=== PATIENT | female | born 1965 | race African-American/Black ===

== ENCOUNTER 2017-04-29 02:01 | Emergency (ER) | payer BC ==
[~2017-04-29] VITALS: Ht 152.4 cm; Wt 70.0 kg
[~2017-04-29 02:01] MED LIST: CYCL5TAB PO; LORTA5 PO; LOSA50TA PO
[2017-04-29 02:04] VITALS: BP 139/86; PULSE 113; RESP 14; TEMP 100.6; O2SAT 96
--- NOTE | 2017-04-29 03:12 | PD ---
HPI Chief Complaint: Cold / Flu Symptoms Time Seen by Provider: 03:02 Travel History International Travel<30 days: No Contact w/Intl Traveler<30days: No History of Present Illness HPI 52-year-old black female presents to emergency department with complaints of flulike symptoms for the past 2 days. She has had fever and chills, right earache, congestion, slight cough, myalgias, arthralgias and general malaise. She denies any shortness of breath or wheezing. No nausea vomiting. No abdominal pain or diarrhea. No dysuria or frequency. No rashes or lesions. Symptoms are moderate. No alleviating factors. Worsened by coughing and malaise. Patient has not taken anything for fever the last 12 hours. PFSH Past Medical History Narrative Medical History of hypertension and hypercholesterolemia. 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) Cardiovascular Problems: Yes High Cholesterol: Yes Chemotherapy: No Chest Pain: Yes Congestive Heart Failure: No COPD: No Cerebrovascular Accident: No Diabetes: No Diminished Hearing: No Endocrine: No GERD: No Glaucoma: No Genitourinary: No Headaches: No Hepatitis: No Hiatal Hernia: No Hypertension: Yes Kidney Stones: No Musculoskeletal: No Neurologic: No Respiratory: No Immunizations Current: Yes Myocardial Infarction: No Radiation Therapy: No Renal Failure: No Seizures: No Sickle Cell Disease: No Sleep Apnea: No Thyroid Disease: No Ulcer: No Tetanus Vaccination: < 5 Years ?: Not Past Surgical History Abdominal Surgery: No AICD: No Cardiac Surgery: No Ear Surgery: No Endocrine Surgery: No Eye Surgery: No Genitourinary Surgery: No Gynecologic Surgery: Yes (HYSTERECTOMY) Hysterectomy: Yes (TOTAL) Oral Surgery: No Thoracic Surgery: No Social History Alcohol Use: No Tobacco Use: No Substance Use: No Allergies-Medications (Allergen,Severity, Reaction): Coded Allergies: Sulfa (Sulfonamide Antibiotics) (Verified Allergy, Unknown, 04/29/17) Reported Meds & Prescriptions Reported Meds & Active Scripts Active Hydrocodone/Acetaminophen 5 mg/325 mg 1 Tab 1 Tab PO Q6H PRN Reported Losartan Potassium 50 MG (Losartan Potassium) 50 Mg Tab 50 Mg PO DAILY Flexeril (Cyclobenzaprine HCl) 5 Mg Tab 5 Mg PO BID UNKNOWN DOSE Review of Systems Except as stated in HPI: all other systems reviewed are Neg Physical Exam Narrative GENERAL: Well-developed, well-nourished in no acute distress. Nontoxic appearing. HEAD: Normocephalic, atraumatic. EYES: Pupils equal round and reactive. Extraocular motions intact. No scleral icterus. No injection or drainage. ENT: TMs clear without erythema. The external auditory canals clear. Nose: clear . Posterior pharynx is pink and moist. No tonsillar edema or exudate. Uvula midline. Airway patent. NECK: Trachea midline.Supple, nontender, moves head freely. No central bony tenderness or spasm. CARDIOVASCULAR: Regular tachycardic rate and rhythm without murmurs, gallops, or rubs. RESPIRATORY: Clear to auscultation. Breath sounds equal bilaterally. No wheezes , rales, or rhonchi. GASTROINTESTINAL: Abdomen soft, non-tender, nondistended. No hepato-splenomegaly , or palpable masses. No guarding. EXTREMITIES: No clubbing, cyanosis, or edema. No joint tenderness, effusion, or edema noted. BACK: Nontender without deformity or crepitance. No flank tenderness. Data Data Last Documented VS Vital Signs Date Time Temp Pulse Resp B/P (MAP) Pulse Ox O2 Delivery O2 Flow Rate FiO2 04/29/17 02:04 100.6 113 14 139/86 (103) 96 Orders Orders Influenzae A/B Antigen (04/29/17 02:23) Ed Discharge Order (04/29/17 03:07) Ibuprofen (Motrin) (04/29/17 03:15) MDM Medical Decision Making Medical Screen Exam Complete: Yes Emergency Medical Condition: Yes Medical Record Reviewed: Yes Interpretation(s) Influenza: Positive influenza A Differential Diagnosis MDM: High Differential diagnoses: Pneumonia, bronchitis, URI, asthma, RAD, legionnaire's disease, SARS, ARDS, influenza, bronchiolitis, RSV,PE,CHF Narrative Course Patient is positive for influenza A. Patient is given Motrin 600 mg by mouth. Diagnosis Primary Impression: Influenza Patient Instructions: General Instructions Departure Forms: Tests/Procedures, Work Release Special Instructions: No work 5 days. Additional Instructions: Rest. Increase fluids. 3 Advil every 6 hours. May augment any fever pain with Tylenol. Mychal. Followup with your DrBabar in one week. Return to the ER for any problems. Disposition: 01 DISCHARGE HOME Condition: Stable Justin Bello Apr 29, 2017 03:12
[2017-04-29] MEDS ORDERED: IBUPROFEN 600 MG TAB PO ONE (03:15)
== END 2017-04-29 03:22 | disposition home or self-care (01) ==
LOC: NEPD 02:01
DX: J09.X2 Influenza due to identified novel influenza A virus with other respiratory manifestations (principal); I10 Essential (primary) hypertension; E78.00 Pure hypercholesterolemia, unspecified; Z85.038 Personal history of other malignant neoplasm of large intestine; Z88.2 Allergy status to sulfonamides; Z79.899 Other long term (current) drug therapy
CPT/HCPCS: 87804; 99283